=== PATIENT | female | born 1990 ===

== ENCOUNTER 2025-06-06 15:01 | Outpatient (AMB) | payer OTHER, SELFPAY ==
[2025-06-06 15:03] VITALS: BP 122/80; PULSE 112; O2SAT 100; BMI 35.6
--- NOTE | 2025-06-06 15:03 | A.OFFVIS_ITS ---
Vital Signs 3 06/06/25 15:03 Height 5 ft 7 in Weight 227 lb 4.745 oz BMI 35.6 BP 122/80 Blood Pressure Location Lt brachial Position Sitting Pulse 112 H Pulse Source Pulse Oximeter Pulse Oximetry (%) 100 Oxygen Delivery Method Room Air Intake Visit Reasons: Hashimotos Intake Note: New patient present today for Hashimotos. Electronics Processor Required: No Accompanied by: Self / Same As Patient Allergies levothyroxine Allergy (Mild, Verified 06/06/25 15:07) Abdominal Pain Medication List - Last Reconciled 06/06/25 by Alyssa Sunshine MD levothyroxine (Tirosint) 125 mcg PO DAILY HPI Comments Details: 35-year-old female coming in today for initial evaluation of hypothyroidism. 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 Did well on tirosint Most recent TSH 04/20/2025: 15.4 Currently on tirosint 125 mcg daily , taking it first thing in the morning , good adherence, good administration She was out of it for a month when she moved here back 3-4 months ago. but now has her refills Extreme fatigue and brain fog, trouble concentrating Patient currently denies heat or cold intolerance, diarrhea or constipation, hair loss, anxiety, weight changes, mood changes, changes in appearance of eyes or vision changes, tremors, increased diaphoresis or dry skin. ? intermittent palpitations, normal cardiology work up LMP: 2 weeks ago , monthly regular periods , not planning a , not currently sexually active Patient denies any difficulty swallowing, pain on swallowing or voice changes or difficulty breathing. Patient denies any history of childhood neck radiation. Denies having ever used lithium, amiodarone or biotin supplements. Patient denies any family history of thyroid cancer. 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 exam General: sitting comfortably in no acute distress HEENT: normocephalic/atraumatic, moist oral mucosa Neck: supple, prominent thyroid Cardiac: normal heart sounds Pulm: normal breath sounds B/L, no added breath sounds Abd: not distended, no tenderness Extremities: no edema, no signs of myxedema [facility] Medical History (Updated 06/06/25 @ 16:11 by Alyssa Sunshine MD) Thyromegaly Hypothyroidism Surgical History (Updated 06/06/25 @ 15:09 by MONICA Madrid) No pertinent past surgical history Family History (Updated 06/06/25 @ 15:11 by MONICA Madrid) Mother Fibromyalgia Breast cancer Heart disease Father Hypertension Type 2 diabetes mellitus Skin cancer High cholesterol Social History (Updated 06/06/25 @ 15:11 by MONICA Madrid) Alcohol intake: current Alcohol intake frequency: does not drink Patient Tobacco Use Status: Never used Tobacco Physical Exam Vital Signs: Last Vital Signs Pulse 112 H 06/06/25 15:03 BP 122/80 06/06/25 15:03 Pulse Ox 100 06/06/25 15:03 Oxygen Delivery Method Room Air 06/06/25 15:03 BMI result Body Mass Index 35.6 Assessment & Plan Assessment & Plan (1) Hypothyroidism: Code(s): E03.9 - Hypothyroidism, unspecified Category: Medical Qualifiers: 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 At the time that she was started on levothyroxine, she had adverse reaction with GI intolerance in the setting of being allergic to the dyes and levothyroxine, she has then been switched to Tirosint which she has done well on. Currently on Tirosint 125 mcg daily. When she recently moved to [place], she was out of her pills for some time so most recent blood work from March 2025 shows TSH was elevated at 15. Now she has been on it consistently for the past 2 months at least. We will repeat blood work today. Plan: -ordered TSH, free T4 to be done today, we will reach out with the results -continue Tirosint 125 mcg daily -follow up in 8 weeks (2) Thyromegaly: Code(s): E01.0 - Iodine-deficiency related diffuse (endemic) goiter Category: Medical Plan: Prominent thyroid on exam today. We will do thyroid ultrasound. Plan: -ordered ultrasound of the thyroid -follow up in 8 weeks to discuss results Plan I spent 45 minutes in reviewing the record, seeing the patient and documenting in the medical record. 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
== END 2025-06-06 16:08 | disposition home or self-care (01) ==
LOC: HO.ENCR 15:02
PROVIDERS: PCP Internal Medicine; Visit Provider Student in an Organized Health Care Education/Training Program
DX: E06.3 Autoimmune thyroiditis (principal); E01.0 Iodine-deficiency related diffuse (endemic) goiter
CPT/HCPCS: 99204

== ENCOUNTER → 2025-06-06 15:01 | Outpatient (BNVA) | payer OTHER, SELFPAY | PROVIDERS: PCP Internal Medicine; Visit Provider Student in an Organized Health Care Education/Training Program | DX: E06.3 Autoimmune thyroiditis (principal); E01.0 Iodine-deficiency related diffuse (endemic) goiter; Z79.899 Other long term (current) drug therapy | CPT/HCPCS: 99202 ==

== ENCOUNTER 2025-06-20 12:16 | Outpatient (REF) | payer OTHER, SELFPAY ==
--- OUTSIDE RECORDS SUMMARY | 2025-06-20 12:38 | XMS_ITS ---
Author Name [facility] Organization Unknown Care Team Organization Name Specialty Phone Email Start Date End Da te [facility] AMBER HAMMOND Primary Care 09/28/2022 07/09/2024
--- OUTSIDE RECORDS SUMMARY | 2025-06-20 12:38 | XMS_ITS | Encounter Summary ---
Author Organization [employer] Address [address] [place] [address] Care Team Providers Care Power Saw Operator Name Role Phone Samra Miranda MD Primary Care Provider [phone] Encounter Details Date Type Department Care Team (Latest Contact Info) Description 06/19/2025 Travel Social History Tobacco Use Types Packs/Day Years Used Date Smoking Tobacco: Never Comments Unknown Sex and Gender Information Value Date Recorded Sex Assigned at Female 05/31/2025 2:31 PM EDT Legal Sex Female 9:24 AM EDT Gender Identity Female 05/31/2025 2:31 PM EDT Sexual Orientation Straight 05/31/2025 2: 31 PM EDT documented as of this encounter Plan of Treatment Not on file documented as of this encounter Visit Diagnoses Not on filedocumented in this encounter Care Teams Power Saw Operator Relationship Specialty Start Date End Date Samra Miranda MD [address] [place] [address] Dr [place] [id number] PCP - General 05/21/25 documented as of this encounter
[2025-06-20 14:57] LABS: Free T4 (Free Thyroxine) 1.27 ng/dL (0.71-1.85); Thyroid Stimulating Hormone 1.87 uIU/mL (0.32-4.0)
== END 2025-06-20 12:17 | disposition home or self-care (01) ==
LOC: HO.WFDLDS 12:16
PROVIDERS: Visit Provider Student in an Organized Health Care Education/Training Program
DX: E03.9 Hypothyroidism, unspecified (principal)
CPT/HCPCS: 36415; 84439; 84443

== ENCOUNTER 2025-08-06 09:24 | Outpatient (AMB) | payer OTHER, SELFPAY ==
--- NOTE | 2025-08-06 09:24 | A.OFFVIS_ITS ---
Vital Signs 3 08/06/25 09:25 Height 5 ft 7 in Weight 234 lb 2.095 oz BMI 36.7 BP 116/76 Blood Pressure Location Lt brachial Position Sitting Pulse 87 Pulse Source Pulse Oximeter Pulse Oximetry (%) 100 Oxygen Delivery Method Room Air Intake Visit Reasons: Hashimotos Intake Note: Patient present today for [employer] office visit. Product Management Specialist Required: No Accompanied by: Self / Same As Patient Allergies levothyroxine Allergy (Mild, Verified 08/06/25 09:27) Abdominal Pain HPI Comments Details: 35-year-old female coming in today for follow up of hypothyroidism. 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 Did well on tirosint Most recent TSH 04/20/2025: 15.4 Currently on tirosint 125 mcg daily , taking it first thing in the morning , good adherence, good administration She was out of it for a month when she moved here back 3-4 months ago. but now has her refills Extreme fatigue and brain fog, trouble concentrating Patient currently denies heat or cold intolerance, diarrhea or constipation, hair loss, anxiety, weight changes, mood changes, changes in appearance of eyes or vision changes, tremors, increased diaphoresis or dry skin. ? intermittent palpitations, normal cardiology work up LMP: 2 weeks ago , monthly regular periods , not planning a , not currently sexually active Patient denies any difficulty swallowing, pain on swallowing or voice changes or difficulty breathing. Patient denies any history of childhood neck radiation. Denies having ever used lithium, amiodarone or biotin supplements. Patient denies any family history of thyroid cancer. 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 One year follow up for this would be needed. 06/20/2025: Normal TSH and free T4 Continues on Tirosint 125 mcg daily Physical exam General: sitting comfortably in no acute distress HEENT: normocephalic/atraumatic, moist oral mucosa Neck: supple, prominent thyroid Cardiac: normal heart sounds Pulm: normal breath sounds B/L, no added breath sounds Abd: not distended, no tenderness Extremities: no edema, no signs of myxedema Laboratory Tests 06/20/25 12:19 TSH 1.87 Free T4 1.27 [facility] Medical History (Updated 08/06/25 @ 09:52 by Alyssa Sunshine MD) Insomnia Thyroid nodule Thyromegaly Hypothyroidism Surgical History No pertinent past surgical history Family History Mother Fibromyalgia Breast cancer Heart disease Father Hypertension Type 2 diabetes mellitus Skin cancer High cholesterol Social History Alcohol intake: current Alcohol intake frequency: does not drink Patient Tobacco Use Status: Never used Tobacco Physical Exam Vital Signs: Last Vital Signs Pulse 87 08/06/25 09:25 BP 116/76 08/06/25 09:25 Pulse Ox 100 08/06/25 09:25 Oxygen Delivery Method Room Air 08/06/25 09:25 BMI result Body Mass Index 36.7 Assessment & Plan Assessment & Plan (1) Hypothyroidism: Code(s): E03.9 - Hypothyroidism, unspecified Category: Medical Qualifiers: 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 At the time that she was started on levothyroxine, she had adverse reaction with GI intolerance in the setting of being allergic to the dyes and levothyroxine, she has then been switched to Tirosint which she has done well on. Currently on Tirosint 125 mcg daily. When she recently moved to [place], she was out of her pills for some time so most recent blood work from March 2025 shows TSH was elevated at 15. Now she has been on it consistently with normal TSH and free T4 from May 2025. Plan: -ordered TSH, free T4 to be done prior to follow up in 1 year -continue Tirosint 125 mcg daily -follow up in 1 year (2) Thyroid nodule: Code(s): E04.1 - Nontoxic single thyroid nodule Category: Medical Plan: 35-year-old female with no family history of thyroid cancer with no personal history of head or neck radiation with hypothyroidism, who was also found to have a left mid lobe 1 cm solid hypoechoic TR 4 nodule. I explained that it is common to have thyroid nodules. About 95% of the time these nodules are benign. However if the nodule is > 1 cm in size or suspicious on ultrasound then a fine need aspiration biopsy is recommended. At this time we will plan to repeat ultrasound in 1 year prior to follow up. Plan: -ordered ultrasound of the thyroid to be done in June 2026 prior to follow up in July 2026 (3) Insomnia: Code(s): G47.00 - Insomnia, unspecified Category: Medical Qualifiers: Insomnia type: unspecified Qualified Code(s): G47.00 - Insomnia, unspecified Plan: Patient is complaining of sleep issues and persistent fatigue. Her thyroid function is normal so she is requesting a sleep medicine referral. I told her that usually sleep specialist see patients with sleep apnea and she has not had a sleep study done. However patient expressed that she already discuss this with her primary care physician and was told to discuss it with the endocrinology? I explained to her that usually 1st the PCP starts with the discussion on sleep hygiene, orders a sleep study but at this time I am happy to put in a referral for her however they might require her to do a sleep study 1st in which case she would have to contact her PCP. Patient verbalized understanding and was appreciative of the referral. Plan I spent 30 minutes in reviewing the record, seeing the patient and documenting in the medical record. Orders: Orders 2 US thyroid 07/04/26 E04.1 - Nontoxic single thyroid nodule Free T4 (Free Thyroxine) 06/30/26 E06.3 - Autoimmune thyroiditis Thyroid Stimulating Hormone 06/30/26 E06.3 - Autoimmune thyroiditis Referrals 2 Sleep Medicine Referral G47.00 - Insomnia, unspecified Medications: Refilled 2 Tirosint (levothyroxine) BRAND NAME ONLY IRENE 0 No substitution allowed 125 mcg PO DAILY 90 caps 5RF NS Patient Instructions: Do ultrasound of the thyroid in June 2026, someone we will call you to schedule this, please make sure this is done a few weeks prior to your next follow up with me -do thyroid blood work a few days prior to next follow up in July 2026 Continue Tirosint 125 mcg daily Follow up in July 2026 Coding Level of Care Code Est Pt Level 4 (37474) Diagnoses 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
[2025-08-06 09:25] VITALS: BP 116/76; PULSE 87; O2SAT 100; BMI 36.7
--- OUTSIDE RECORDS SUMMARY | 2025-08-06 11:55 | XMS_ITS | Clinical Summary ---
Author Organization [employer] Address [address] [facility] [address] [place] [address] Care Team Providers Care Self Contained Behavior Unit Teacher Name Role Phone Samra Miranda MD Primary Care Provider [phone] Allergies No known active allergies Medications Tirosint 125 MCG capsule Take 125 mcg by mouth Once per day. 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 History of ovarian cyst 06/19/2025 Severe obesity (BMI 35.0-39.9) with comorbidity 06/19/2025 Encounters Date Type Department Care Team Description 06/19/2025 12:00 PM EDT Office Visit [facility] OPTOMETRY [address] [place] [address] Sarah Gomez, OD Corneal neovascularization of both eyes (Primary Dx); Myopia of both eyes 06/19/2025 Travel 06/13/2025 Travel from Last 3 Months Social History Tobacco Use Types Packs/Day Years Used Date Smoking Tobacco: Never Tobacco Cessation:Counseling Given: Not Answered Comments Unknown Sex and Gender Information Value Date Recorded Sex Assigned at Female 05/31/2025 2:31 PM EDT Legal Sex Female 9:24 AM EDT Gender Identity Female 05/31/2025 2:31 PM EDT Sexual Orientation Straight 05/31/2025 2: 31 PM EDT Last Filed Vital Signs Vital Sign Reading Time Taken Comments Blood Pressure 104/82 06/19/2025 11:55 AM EDT Pulse - - Temperature - - Respiratory Rate - - Oxygen Saturation - - Inhaled Oxygen Concentration - - Weight - - Height - - Body Mass Index - - Plan of Treatment Health Maintenance Due Date Last Done Comments Depression Screening 1991 HIV Screening 1991 Lipid Panel 1991 SDOH Screening 1991 Disability Screening 1991 Alcohol/Substance Use Screening 2003 Family Planning (PISQ) 2006 HPV Vaccines (1 - 3-dose series) 2006 Hepatitis C Screening 2009 DTaP/Tdap/Td Vaccines (1 - Tdap) 2010 Hepatitis B Vaccines (1 of 3 - 19+ 3-dose series) 2010 Pap Smear 2012 Cervical Cancer Screening 2021 HPV/Cotest 2021 COVID-19 Vaccine (1 - 2023-2 5 season) 2025 Influenza Vaccine (#1) 2025 Tobacco Screening 06/19/2026 06/19/2025 Zoster Vaccines (1 of 2) 2041 RSV Patients and Pa tients Aged 60 years or older (1 - 1-dose 75+ series) 2066 HIB Vaccines Aged Out No longer eligi ble based on patient's age to complete this topic Hepatitis A Vaccines Aged Out No long er eligible based on patient's age to complete this topic IPV Vaccines Aged Out No longer eligi ble based on patient's age to complete this topic Meningococcal B Vaccine Aged Out No l onger eligible based on patient's age to complete this topic Meningococcal Vaccine Aged Out No randi maria teresa eligible based on patient's age to complete this topic Pneumococcal Vaccine: Pediat rics (0 to 5 Years) and At-Risk Patients (6 to 49) Years Aged Out No longer eligi ble based on patient's age to complete this topic RSV under 20 months Aged Out No longe r eligible based on patient's age to complete this topic Rotavirus Vaccines Aged Out No longer eligible based on patient's age to complete this topic Insurance [facility] Care Teams Self Contained Behavior Unit Teacher Relationship Specialty Start Date End Date Samra Miranda MD [address] [place] [address] [place] [address] PCP - General 05/21/25
== END 2025-08-06 09:53 | disposition home or self-care (01) ==
LOC: HO.ENCR 09:24
PROVIDERS: PCP Internal Medicine; Visit Provider Student in an Organized Health Care Education/Training Program
DX: E06.3 Autoimmune thyroiditis (principal); E04.1 Nontoxic single thyroid nodule; G47.00 Insomnia, unspecified
CPT/HCPCS: 99214

== ENCOUNTER → 2025-08-06 09:24 | Outpatient (BNVA) | payer OTHER, SELFPAY | PROVIDERS: PCP Internal Medicine; Visit Provider Student in an Organized Health Care Education/Training Program | DX: E04.1 Nontoxic single thyroid nodule (principal); E06.3 Autoimmune thyroiditis; G47.00 Insomnia, unspecified | CPT/HCPCS: 99212 ==

== ENCOUNTER 2025-08-13 08:22 | Outpatient (REF) | payer OTHER, SELFPAY ==
--- OUTSIDE RECORDS SUMMARY | 2025-08-14 09:11 | XMS_ITS | Clinical Summary ---
Author Organization [employer] Address [address] [facility] [address] [place] [address] Care Team Providers Care Heading Matcher And Assembler Name Role Phone Samra Miranda MD Primary Care Provider [phone] Allergies No known active allergies Medications Tirosint 125 MCG capsule Take 125 mcg by mouth Once per day. 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 History of ovarian cyst 06/19/2025 Severe obesity (BMI 35.0-39.9) with comorbidity 06/19/2025 Encounters Date Type Department Care Team Description 06/19/2025 12:00 PM EDT Office Visit [facility] [address] [place] [address] Sarah Gomez, OD Corneal neovascularization of both [...] patient's age to complete this topic Insurance [facility] ESSENTIAL MCO PLAN [facility] [employer] Care Teams Heading Matcher And Assembler Relationship Specialty Start Date End Date Samra Miranda MD [address] [place] [address] [place] [phone] PCP - General 05/21/25
== END 2025-08-13 08:23 | disposition home or self-care (01) ==
LOC: HO.HOSX 08:22
PROVIDERS: Visit Provider Physician Assistant
DX: M53.3 Sacrococcygeal disorders, not elsewhere classified (principal); M54.16 Radiculopathy, lumbar region
CPT/HCPCS: 99202

== ENCOUNTER 2025-08-13 11:17 | Outpatient (AMB) | payer OTHER, SELFPAY ==
--- NOTE | 2025-08-13 11:48 | MHC.OFFVIS ---
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 Pierce is a 35-year-old female who presents to the office today for right lower back pain with radiating symptoms to the right lower extremity. She reports that she has had SI dysfunction and has been to multiple rounds of physical therapy. She reports that she had an MRI that was obtained at [facility] which also had nerve compression findings. She has not had any additional treatment to her lower back or SI joint in regards to steroid injections or other procedures. She denies pain in the right groin. The majority of her pain is located along the lower aspect of her back and right buttock. [facility] Medical History (Updated 08/13/25 @ 14:09 by Silvia Turner PA-C) Insomnia Thyroid nodule Thyromegaly Hypothyroidism Surgical History No pertinent past surgical history Family History Mother Fibromyalgia Breast cancer Heart disease Father Hypertension Type 2 diabetes mellitus Skin cancer High cholesterol Social History Alcohol intake: current Alcohol intake frequency: does not drink Patient Tobacco Use Status: Never used Tobacco Review of Systems Const All systems reviewed & are unremarkable except as noted in HPI and below Physical Exam Const General: cooperative, healthy appearing and no acute distress Resp Effort & Inspection: normal respiratory effort and able to speak in complete sentences Extrem Other: Right hip: Full hip ROM in all planes. No tenderness to palpation over the greater trochanteric bursa. 5/5 strength with resisted hip flexion, knee extension, abduction, and abduction. Able to perform straight leg raise. NVI. Psych Appearance: grossly normal Mental Status: mental status grossly normal Attitude: cooperative Assessment & Plan Assessment & Plan (1) SI (sacroiliac) joint dysfunction: Code(s): M53.3 - Sacrococcygeal disorders, not elsewhere classified Category: Medical Plan Ms. Pierce is a 35-year-old female who presents to the office today for right lower back pain with radiating symptoms to the right lower extremity. She reports that she has had SI dysfunction and has been to multiple rounds of physical therapy. She reports that she had an MRI that was obtained at [facility] which also had nerve compression findings. She has not had any additional treatment to her lower back or SI joint in regards to steroid injections or other procedures. She denies pain in the right groin. The majority of her pain is located along the lower aspect of her back and right buttock. While in the office today, the patient reports that she has had x-rays as well as an MRI that was done previous to today's evaluation. Unfortunately, there seems to be a miscommunication when scheduling the appointment. The patient does not have any complaints regarding the right hip. I instructed the patient that she should obtain her MRI imaging of her lower back from [facility] on a disc as well as the MRI report. We have made a follow up appointment with Dr. Hannah for further evaluation and treatment. Additionally, we discussed the role of EMG as the patient is symptoms are radiating to the right lower extremity and there was a question of nerve impingement. She reported that a previous provider who was treating her had also mentioned this study. Therefore, I will place an order for this study for Dr. Hannah to have as much information as possible to evaluate this patient and develop the appropriate treatment plan. Patient is in agreement with this plan. She will follow up with Dr. Hannah after EMG has been obtained and the patient will bring her MRI disc with the report to this appointment. Orders: Orders NE nerve conduction velocity Today M53.3 - Sacrococcygeal disorders, not elsewhere classified, M54.16 - Radiculopathy, lumbar region NE electromyogram (EMG) Today M53.3 - Sacrococcygeal disorders, not elsewhere classified, M54.16 - Radiculopathy, lumbar region Coding Level of Care Code New Pt Level 3 (59937) Diagnoses SI (sacroiliac) joint dysfunction M53.3
--- OUTSIDE RECORDS SUMMARY | 2025-08-13 14:09 | XMS_ITS | Clinical Summary ---
Author Organization [employer] Address [address] [facility] [address] [place] [address] Care Team Providers Care Automation Analyst Name Role Phone Samra Miranda MD Primary Care Provider [phone] Allergies No known active allergies Medications Tirosint 125 MCG capsule Take 125 mcg by mouth Once per day. 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 History of ovarian cyst 06/19/2025 Severe obesity (BMI 35.0-39.9) with comorbidity 06/19/2025 Encounters Date Type Department Care Team Description 06/19/2025 12:00 PM EDT Office Visit [facility] [address] [place] [address] Sarah Gomez, OD Corneal neovascularization of both [...] patient's age to complete this topic [facility] [employer] PLAN [facility] [employer] Care Teams Automation Analyst Relationship Specialty Start Date End Date Samra Miranda MD [address] [place] [address] [place] [phone] PCP - General 05/21/25
== END 2025-08-13 12:14 | disposition home or self-care (01) ==
LOC: HO.HOS 11:18
PROVIDERS: PCP Internal Medicine; Visit Provider Physician Assistant
DX: M53.3 Sacrococcygeal disorders, not elsewhere classified (principal)
CPT/HCPCS: 99203

== ENCOUNTER 2025-08-19 13:22 | Outpatient (AMB) | payer OTHER, SELFPAY ==
--- OUTSIDE RECORDS SUMMARY | 2025-06-19 12:00 | XMS_ITS | Encounter Summary ---
Author Organization [employer] Address [address] [place] [address] Care Team Providers Care Grapple Skidder Operator Name Role Phone Samra Miranda MD Primary Care Provider [phone] Reason for Visit * Reason Comments Eye Exam Encounter Details Date Type Department Care Team (Latest Contact Info) Description 06/19/2025 12:00 PM EDT Office Visit [facility] OPTOMETRY [address] [place] [address] Sarah Gomez, [place] [address] [place] [address] Corneal neovascularization of both eyes (Primary Dx); Chronic tension-type headache, not intractable; Myopia of both eyes Social History Tobacco Use Types Packs/Day Years Used Date Smoking Tobacco: Never Tobacco Cessation:Counseling Given: Not Answered Comments Unknown Sex and Gender Information Value Date Recorded Sex Assigned at Female 05/31/2025 2:31 PM EDT Legal Sex Female 9:24 AM EDT Gender Identity Female 05/31/2025 2:31 PM EDT Sexual Orientation Straight 05/31/2025 2: 31 PM EDT documented as of this encounter Last Filed Vital Signs Vital Sign Reading Time Taken Comments Blood Pressure 104/82 06/19/2025 11:55 AM EDT Pulse - - Temperature - - Respiratory Rate - - Oxygen Saturation - - Inhaled Oxygen Concentration - - Weight - - Height - - Body Mass Index - - documented in this encounter Progress Notes * MONICA Beth - 06/19/2025 12:00 PM EDT Assessment/Plan * Sarah Gomez, OD - 06/19/2025 12:00 PM EDT Assessment/Plan Diagnoses and all orders for this visit: Corneal neovascularization of both eyes Previous history of per pt, she states discontinued CL wear several years ago. Pt reassured healthycorneal appearance; OK to resume part-time CL wear Chronic tension-type headache, not intractable Recommend updating specs and work with PCP if symptoms continue Myopia of both eyes Spec Rx given DVO. Good initial fit, comfort with Acuvue 1-day moist. Dispensed diagnostic CLs and Rx finalized - RTC if any problems documented in this encounter Plan of Treatment Not on file documented as of this encounter Visit Diagnoses Diagnosis Corneal neovascularization of both eyes- Primary Chronic tension-type headache, not intractable Chronic tension type headache Myopia of both eyes documented in this encounter Care Teams Grapple Skidder Operator Relationship Specialty Start Date End Date Samra Miranda MD [address] [place] [address] [place] [id number] PCP - General 05/21/25 documented as of this encounter
[2025-08-19 13:31] VITALS: BP 124/72; PULSE 80; O2SAT 99; BMI 36.7
--- NOTE | 2025-08-19 13:31 | MHC.OFFVIS ---
Vital Signs 08/19/25 13:31 Height 5 ft 7 in Weight 234 lb 6 oz BMI 36.7 BP 124/72 Blood Pressure Location Rt brachial Position Sitting Pulse 80 Pulse Source Pulse Oximeter Pulse Oximetry (%) 99 Oxygen Delivery Method Room Air Intake Visit Reasons: INP-insomnia Intake Note: Patient presents [employer]. Patient is complaining of sleep issues and persistent fatigue. Her thyroid function is normal so she is requesting a sleep medicine referral. I told her that usually sleep specialist see patients with sleep apnea and she has not had a sleep study done. Patient states snoring but not sure about apnea/gasping. Goes to bed around 10pm wakes up at 8am. Wakes up at least 1-2times. Wakes up sometimes with headaches that resolve through out the day. Accompanied by: Self / Same As Patient Allergies levothyroxine Allergy (Mild, Verified 08/19/25 13:35) Abdominal Pain HPI Comments Details: 35 year old female is here for a sleep apnea evaluation, she is referred to us by her pcp. 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 She thought her symptoms were due to intermediate covid and Hashimotos though her labs were normal. She snores at night, denies gasping for air and apneas. She has morning headaches 3-4 / per week and it resolve at lunch time or after meals. She has pressure and ringing in her ears bilaterally. Her memory is poor she loses focus, can not concentrate, will forget tasks, and needs to write everything down. She is uncertain about her diagnosis and is working through neuro- divergent therapies to include talk therapy. She has tried melatonin 10mg gummies, in the past, she goes to bed at 10:30pm and falls asleep by midnight. She gets up at 8am and gets out of bed by 9am to walk her dog. RLS Symptoms she denies, though has r. sided sciatica, is working with a PT 2x a week for the last 3 weeks for impingement of the piriformis. She denies paresthesias of the feet and noticed a new intermittent tremor of the l. hand, she denies weakness or difficulty with fine motor activities. She denies smoking, MJ use and alcohol intake is social. [facility] Medical History Insomnia Thyroid nodule Thyromegaly Hypothyroidism Surgical History No pertinent past surgical history Family History Mother Fibromyalgia Breast cancer Heart disease Father Hypertension Type 2 diabetes mellitus Skin cancer High cholesterol Social History Alcohol intake: current Alcohol intake frequency: does not drink Patient Tobacco Use Status: Never used Tobacco Physical Exam Vital Signs: Last Vital Signs Pulse 80 08/19/25 13:31 BP 124/72 08/19/25 13:31 Pulse Ox 99 08/19/25 13:31 Oxygen Delivery Method Room Air 08/19/25 13:31 BMI result Body Mass Index 36.7 Const General: cooperative, comfortable and no acute distress Nutritional Appearance: average body habitus Orientation/consciousness: patient oriented x3 HEENT Face and sinus: Yes face symmetric Teeth and gingiva: other ([place] score is 3) Eyes Pupils: Equal, round and reactive pupils present Neck Neck: Yes full ROM Resp Effort & Inspection: normal respiratory effort and able to speak in complete sentences Neuro General: patient oriented x3 and moves all extremities Cranial nerves: Yes Equal, round and reactive pupils present, Yes Normal accommodation reflex present, Yes Midline tongue present, Yes Ability to bilaterally rotate head present and Yes Ability to bilaterally elevate shoulders present Cognition (Neuro): normal cognition Gait exam (Neuro): Normal gait present Motor exam (neuro): 5/5 motor strength present throughout and Normal motor muscle tone present throughout Deep tendon reflexes (DTR's): Right triceps reflex intensity grade: 2+, Left triceps reflex intensity grade: 2+, Rt Biceps (C5, C6): 2+, Left biceps reflex intensity grade: 2+, Right brachioradialis reflex intensity grade: 2+, Left brachioradialis reflex intensity grade: 2+, Right patellar reflex intensity grade: 2+ and Left patellar reflex intensity grade: 2+ Psych Appearance: grossly normal Mental Status: mental status grossly normal Affect: normal affect Thought process: Normal thought process present Thought content: Normal thought content present Assessment & Plan Assessment & Plan (1) Insomnia: Code(s): G47.00 - Insomnia, unspecified Category: Medical Qualifiers: Insomnia type: unspecified Qualified Code(s): G47.00 - Insomnia, unspecified (2) Excessive daytime sleepiness: Code(s): G47.19 - Other hypersomnia Category: Medical (3) SI (sacroiliac) joint dysfunction: Code(s): M53.3 - Sacrococcygeal disorders, not elsewhere classified Category: Medical Plan Excessive daytime fatigue HST r/o KAYLIN Labs to r/o deficiencies Tremor of the l. upper extremity will monitor RLS symptoms r sided will monitor, she is doing PT. Orders: Orders Complete Blood Count no Diff Today G47.00 - Insomnia, unspecified, G47.19 - Other hypersomnia Ferritin Today G47.00 - Insomnia, unspecified, G47.19 - Other hypersomnia Homocysteine Today G47.00 - Insomnia, unspecified, G47.19 - Other hypersomnia, G47.9 - Sleep disorder, unspecified, R53.83 - Other fatigue Vitamin B6 Today G47.00 - Insomnia, unspecified, G47.19 - Other hypersomnia Vitamin B12 and Folate Today G47.00 - Insomnia, unspecified, G47.19 - Other hypersomnia RT home sleep study Today G47.00 - Insomnia, unspecified, G47.19 - Other hypersomnia Comprehensive Met. Panel Today G47.00 - Insomnia, unspecified, G47.19 - Other hypersomnia Methylmalonic Acid Today G47.00 - Insomnia, unspecified, G47.19 - Other hypersomnia, G47.9 - Sleep disorder, unspecified, R53.83 - Other fatigue Vitamin D 25-OH Total Today G47.00 - Insomnia, unspecified, G47.19 - Other hypersomnia Vitamin B1 Today G47.00 - Insomnia, unspecified, G47.19 - Other hypersomnia Patient Instructions: Sleep Hygiene provided: set a scheduled bedtime and wake time to help regulate the circadian rhythm and balance the release of pituitary hormones. Sleep in a dark room, temperatures below 68 degrees, and no devices n bed. Limit caffeinated products 6 hours prior to bed, and limit fluids 2-4 hours prior to bed. Gentle night yoga, diffusing essential oils, and playing soft music can be relaxing. Coding Level of Care Code New Pt Level 4 (07566) Diagnoses Insomnia, unspecified type G47.00 Insomnia type: unspecified Excessive daytime sleepiness G47.19 SI (sacroiliac) joint dysfunction M53.3 Sleep Questionnaire Difficulty falling asleep: Yes Difficulty staying asleep?: No Number of arousals: 2-3x night Snoring: Yes Witnessed apneas: No Gasping arousals: No Nocturia: No GERD: No Vivid dreams: No Acting out dreams: Yes (kicks her legs ) Abnormal behavior in sleep: No Abnormal movements in sleep: Yes Morning headaches: Yes Excessive daytime sleepiness: Yes Daytime naps: No Restless legs: Yes (r side hip pain radiates can cause numbness tingli) Hallucinations: No Sleep paralysis: Yes Drop attacks: No Sleep Study: No CPAP: No
--- OUTSIDE RECORDS SUMMARY | 2025-08-19 14:53 | XMS_ITS | Data Portability ---
Author Organization [facility] [employer] Address [address] [place] [phone] Assessment Encounter Date Assessment Date Assessment LastModified by Organization Details LastModified Time 07/05/2023 07/05/2023 15 minutes spent on TH call. 20 minutes spent on date of service on chart review, direct time spent with patient, and documentation of clinical encounter. Pt will check BP out of office, states she has one to use at local pharmacy. Notify us if elevated above 130/90. Not available 07/05/2023 12:27:35 Plan of Treatment Reminders Order Date Submit Date Provider Last Modified By Organization Details Last Modified Time Details Appointments None recorded. Lab HbA1c (hemoglobi n A1c), blood 2022 023 [facility] (Centralized Electronic Ordering - All Locations), Patient Can Go To The Location Of Their Choice, 3 19:24:15 lipid panel, serum 2022 023 [facility] (Centralized Electronic Ordering - All Locations), Patient Can Go To The Location Of Their Choice, 3 15:28:33 TSH, serum or plasma 2022 023 [facility] (Centralized Electronic Ordering - All Locations), Patient Can Go To The Location Of Their Choice, 3 15:39:22 vitamin D, 25-hydroxy , total, serum 2022 023 [facility] (Centralized Electronic Ordering - All Locations), Patient Can Go To The Location Of Their Choice, 3 15:39:23 CBC w/ auto diff 2022 023 [facility] (Centralized Electronic Ordering - All Locations), Patient Can Go To The Location Of Their Choice, 15:08:20 CMP, serum or plasma 2022 023 [facility] (Centralized Electronic Ordering - All Locations), Patient Can Go To The Location Of Their Choice, 15:28:32 Referral None recorded. Procedures None recorded. Surgeries None recorded. Imaging None recorded. Medication Orders Tirosint 112 mcg capsule 2022 023 [id number], [address] [place] [address], [place], [address], 16:08:56 Patient TargetsNo targets recorded. Patient InstructionsNo instructions recorded. Reason for Referral None Reported. Results Created Date Observation Date Name Description Value Unit Range Abnormal Flag Note LastModifiedBy Organization Detail LastModifiedTime 07/08/2007/08/2023 COMPL ETE BLOOD COUNT WBC 7.3 K/mm3 (4.0-1 1.0) Not Available [facility] (Centralized Electronic Ordering - All Locations) Patient Can Go To The Location Of Their Choice, 07/08/2023 15:08:07/08/2007/08/2023 COMPL ETE BLOOD COUNT RBC 4.51 M/mm3 (4.20- 5.40) Not Available [facility] (Centralized Electronic Ordering - All Locations) Patient Can Go To The Location Of Their Choice, 07/08/2023 15:08:19 07/08/2007/08/2023 COMPL ETE BLOOD COUNT HGB 13.0 gm/dL (11.7- 15.5) Not Available [facility] (Centralized Electronic Ordering - All Locations) Patient Can Go To The Location Of Their Choice, 07/08/2023 15:08:07/08/2007/08/2023 COMPL ETE BLOOD COUNT HCT 40.2 % (35.7- 45.8) Not Available [facility] (Centralized Electronic Ordering - All Locations) Patient Can Go To The Location Of Their Choice, 07/08/2023 15:08:19 07/08/2007/08/2023 COMPL ETE BLOOD COUNT MCV 89.1 fL (80.0- 100.0) Not Available [facility] (Centralized Electronic Ordering - All Locations) Patient Can Go To The Location Of Their Choice, 07/08/2023 15:08:19 07/08/2007/08/2023 COMPL ETE BLOOD COUNT MCH 28.8 pg (27.0- 34.0) Not Available [facility] (Centralized Electronic Ordering - All Locations) Patient Can Go To The Location Of Their Choice, 07/08/2023 15:08:07/08/2007/08/2023 COMPL ETE BLOOD COUNT MCHC 32.3 g/dL (33.0- 37.0) low Not Available [facility] (Centralized Electronic Ordering - All Locations) Patient Can Go To The Location Of Their Choice, 07/08/2023 15:08:07/08/2007/08/2023 COMPL ETE BLOOD COUNT plt 334 K/mm3 (150-4 60) Not Available [facility] (Centralized Electronic Ordering - All Locations) Patient Can Go To The Location Of Their Choice, 07/08/2023 15:08:19 07/08/2007/08/2023 COMPL ETE BLOOD COUNT RDW-SD 43.4 fL (<47.0 ) Not Available [facility] (Centralized Electronic Ordering - All Locations) Patient Can Go To The Location Of Their Choice, 07/08/2023 15:08:07/08/2007/08/2023 COMPL ETE BLOOD COUNT MPV 10.4 fL (9.4-1 2.4) Not Available [facility] (Centralized Electronic Ordering - All Locations) Patient Can Go To The Location Of Their Choice, 07/08/2023 15:08:07/08/2007/08/2023 COMPL ETE BLOOD COUNT automated NRBC 0.0 #/100 _WBC' s Not Available [facility] (Centralized Electronic Ordering - All Locations) Patient Can Go To The Location Of Their Choice, 07/08/2023 15:08:19 07/08/2007/08/2023 COMPL ETE BLOOD COUNT abs. NRBC 0.0 K/mm3 Not Available [facility] (Centralized Electronic Ordering - All Locations) Patient Can Go To The Location Of Their Choice, 07/08/2023 15:08:19 07/08/2007/08/2023 COMPR EHENS YARELIS METAB OLIC PANL glucose 75 mg/dL (70-99 ) Not Available [facility] (Centralized Electronic Ordering - All Locations) Patient Can Go To The Location Of Their Choice, 07/08/2023 15:28:32 07/08/2007/08/2023 COMPR EHENS YARELIS METAB OLIC PANL BUN 10 mg/dL (6-20) Not Available [facility] (Centralized Electronic Ordering - All Locations) Patient Can Go To The Location Of Their Choice, 07/08/2023 15:28:32 07/08/2007/08/2023 COMPR EHENS YARELIS METAB OLIC PANL creatinine 0.7 mg/dL (0.5-1 .0) Not Available [facility] (Centralized Electronic Ordering - All Locations) Patient Can Go To The Location Of Their Choice, 07/08/2023 15:28:32 07/08/2007/08/2023 COMPR EHENS YARELIS METAB OLIC PANL sodium 138 mmol/ L (133-1 45) Not Available [facility] (Centralized Electronic Ordering - All Locations) Patient Can Go To The Location Of Their Choice, 07/08/2023 15:28:32 07/08/2007/08/2023 COMPR EHENS YARELIS METAB OLIC PANL potassium 4.3 mmol/ L (3.6-5 .2) Not Available [facility] (Centralized Electronic Ordering - All Locations) Patient Can Go To The Location Of Their Choice, 07/08/2023 15:28:32 07/08/2007/08/2023 COMPR EHENS YARELIS METAB OLIC PANL chloride 105 mmol/ L (98-10 7) Not Available [facility] (Centralized Electronic Ordering - All Locations) Patient Can Go To The Location Of Their Choice, 07/08/2023 15:28:32 07/08/2007/08/2023 COMPR EHENS YARELIS METAB OLIC PANL bicarbonate 23 mmol/ L (22-29 ) Not Available [facility] (Centralized Electronic Ordering - All Locations) Patient Can Go To The Location Of Their Choice, 07/08/2023 15:28:32 07/08/2007/08/2023 COMPR EHENS YARELIS METAB OLIC PANL anion gap 10 (4-17) Not Available [facility] (Centralized Electronic Ordering - All Locations) Patient Can Go To The Location Of Their Choice, 07/08/2023 15:28:32 07/08/2007/08/2023 COMPR EHENS YARELIS METAB OLIC PANL albumin 4.5 gm/dL (3.4-4 .8) Not Available [facility] (Centralized Electronic Ordering - All Locations) Patient Can Go To The Location Of Their Choice, 07/08/2023 15:28:32 07/08/2007/08/2023 COMPR EHENS YARELIS METAB OLIC PANL calcium 9.5 mg/dL (8.6-1 0.5) Not Available [facility] (Centralized Electronic Ordering - All Locations) Patient Can Go To The Location Of Their Choice, 07/08/2023 15:28:32 07/08/2007/08/2023 COMPR EHENS YARELIS METAB OLIC PANL bilirubin,to samuel 0.8 mg/dL (0-1.2 ) Not Available [facility] (Centralized Electronic Ordering - All Locations) Patient Can Go To The Location Of Their Choice, 07/08/2023 15:28:32 07/08/2007/08/2023 COMPR EHENS YARELIS METAB OLIC PANL total protein 8.0 gm/dL (6.2-8 .2) Not Available [facility] (Centralized Electronic Ordering - All Locations) Patient Can Go To The Location Of Their Choice, 07/08/2023 15:28:32 07/08/2007/08/2023 COMPR EHENS YARELIS METAB OLIC PANL Ag ratio 1.3 Not Available [facility] (Centralized Electronic Ordering - All Locations) Patient Can Go To The Location Of Their Choice, 07/08/2023 15:28:32 07/08/2007/08/2023 COMPR EHENS YARELIS METAB OLIC PANL AST 15 U/L (0-32) Not Available [facility] (Centralized Electronic Ordering - All Locations) Patient Can Go To The Location Of Their Choice, 07/08/2023 15:28:32 07/08/2007/08/2023 COMPR EHENS YARELIS METAB OLIC PANL alk phos 57 U/L (35-10 4) Not Available [facility] (Centralized Electronic Ordering - All Locations) Patient Can Go To The Location Of Their Choice, 07/08/2023 15:28:32 07/08/20 23 07/08/2023 COMPR EHENS YARELIS METAB OLIC PANL ALT 26 U/L (0-33) Not Available [facility] (Centralized Electronic Ordering - All Locations) Patient Can Go To The Location Of Their Choice, 07/08/2023 15:28:32 07/08/2007/08/2023 COMPR EHENS YARELIS METAB OLIC PANL estimated GFR creatinine 116 mL/mi n/1.7 3_M2 Creat inine based estim ated glome rular filtr ation (eGFR ) in adult s is calcu lated using the Natio nal Kidne y Found ation recom tushar d 2020 CKD-E PI equat ion. Estim ates GFR from serum creat inine , age and sex. Not Available [facility] (Centralized Electronic Ordering - All Locations) Patient Can Go To The Location Of Their Choice, 07/08/2023 15:28:32 07/08/2007/08/2023 LIPID PANEL cholesterol, total 128 mg/dL (<200) Not Available [facility] ([facility] - All Locations) Patient Can Go To The Location Of Their Choice, 07/08/2023 15:28:33 07/08/2007/08/2023 LIPID PANEL triglyceride 103 mg/dL (<150) Not Available [facility] ([facility] - [facility] Locations) Patient Can Go To The Location Of Their Choice, 07/08/2023 15:28:33 07/08/2007/08/2023 LIPID PANEL HDL chol 39 mg/dL (>39) low Not Available [facility] (Centralized Electronic Ordering - All Locations) Patient Can Go To The Location Of Their Choice, 07/08/2023 15:28:33 07/08/2007/08/2023 LIPID PANEL LDL cholesterol, calculated 68 mg/dL (0-130 ) Not Available [facility] (Centralized Electronic Ordering - All Locations) Patient Can Go To The Location Of Their Choice, 07/08/2023 15:28:33 07/08/2007/08/2023 LIPID PANEL non HDL cholesterol (calc) 89 mg/dL (<160) Not Available [facility] ([facility] Order[facility] - All Locations) Patient Can Go To The Location Of Their Choice, 07/08/2023 15:28:33 07/08/2007/08/2023 TSH WITH REFLE X TO FT4 TSH 8.51 uIU/m L (0.4-4 .2) high Not Available [facility] (Centralized Electronic Ordering - All Locations) Patient Can Go To The Location Of Their Choice, 07/08/2023 15:39:22 07/08/2007/08/2023 25OH VITAM IN D 25OH vitamin D 20.8 NG/mL (20-50 ) Not Available [facility] (Centralized Electronic Ordering - All Locations) Patient Can Go To The Location Of Their Choice, 07/08/2023 15:39:23 07/08/2007/08/2023 FREE T4 free T4 1.42 NG/dL (0.70- 1.80) Not Available [facility] (Centralized Electronic Ordering - All Locations) Patient Can Go To The Location Of Their Choice, 07/08/2023 16:20:24 07/08/2007/08/2023 HEMOG LOBIN A1C hemoglobin A1C 5.2 % (4.0-5 .6) MONIT ORING : In known diabe tic patie nts, hemog lobin A1c targe ts shoul d be discu ssed with healt h care provi darline. DIAGN OSTIC USE: The Ameri can Diabe aaron Assoc iatio n (ADA) and the World Healt h Organ izati on (WHO) recom mend the use of HbA1c to diagn ose diabe aaron using a thres hold of 6.5%. Patie nts who have an HbA1c betwe en 5.7% and 6.4% are consi dered at incre ased risk for devel oping diabe aaron in the futur e. CAUTI ON: False ly low HbA1c resul ts may be obser bob in patie nts with hemol ytic anemi a, homoz ygous forms of abnor mal hemog lobin (e.g. SS, CC, SC), pregn karen, recen t blood loss or hemog lobin F great er than 7%. Fruct osami ne may be used as an alter nick test in these cases . REFER ENCE: ADA: Stand ards of Medic al Care in Diabe a[place] 2019, The Journ al of Clini paula and Appli ed Resea rch and Educa tion Volum e 43, Suppl ement 1 Not Available [facility] (Centralized Electronic Ordering - All Locations) Patient Can Go To The Location Of Their Choice, 07/08/2023 19:24:15 07/20/2007/20/2023 LETY TIN ferritin 51 NG/mL (14-28 3) Not Available [facility] (Centralized Electronic Ordering - All Locations) Patient Can Go To The Location Of Their Choice, 07/20/2023 16:12:53 07/20/2007/20/2023 TSH WITH REFLE X TO FT4 TSH 5.70 uIU/m L (0.4-4 .2) high Not Available [facility] (Centralized Electronic Ordering - All Locations) Patient Can Go To The Location Of Their Choice, 07/20/2023 16:12:54 07/20/2007/20/2023 FREE T4 free T4 1.57 NG/dL (0.70- 1.80) Not Available [facility] (Centralized Electronic Ordering - All Locations) Patient Can Go To The Location Of Their Choice, 07/20/2023 16:41:34 09/03/2009/03/2023 TSH WITH REFLE X TO FT4 results Dupli arcelia order cance lled via inter face Not Available [facility] (Centralized Electronic Ordering - All Locations) Patient Can Go To The Location Of Their Choice, 09/03/2023 09:49:02 09/03/2009/03/2023 FREE T3 free T3 3.6 pg/mL (2.3-5 .0) Not Available [facility] (Centralized Electronic Ordering - All Locations) Patient Can Go To The Location Of Their Choice, 09/03/2023 16:32:02 09/03/2009/03/2023 TSH WITH REFLE X TO FT4 TSH 2.05 uIU/m L (0.4-4 .2) Not Available [facility] (Centralized Electronic Ordering - All Locations) Patient Can Go To The Location Of Their Choice, [id number] 09/03/2023 16:32:04 09/03/2009/03/2023 ANTIT HYROG LOBUL IN AB antithyroglo bulin Ab 260.0 IU/mL (<115) high The resul ts are assay depen dent and canno t be inter craft eable with other assay s. The antib danielle assay is being perfo rmed using the elect irma milum inesc ence immun oassa y on the Irma Halle immun oassa y bijan zer. A corre latio n with clini paula prese ntati on is recom tushar d while inter preti ng the resul ts. Not Available [facility] (Centralized Electronic Ordering - All Locations) Patient Can Go To The Location Of Their Choice, 09/03/2023 17:17:44 09/03/2009/03/2023 ANTI THYRO ID PEROX IDASE AB anti thyroid peroxidase Ab 194.0 IU/mL (<34) high The resul ts are assay depen dent and canno t be inter craft eable with other assay s. The antib danielle assay is being perfo rmed using the elect irma milum inesc ence immun oassa y on the Irma Halle immun oassa y bijan zer. A corre latio n with clini paula prese ntati on is recom tushar d while inter preti ng the resul ts. Not Available [facility] (Centralized Electronic Ordering - All Locations) Patient Can Go To The Location Of Their Choice, [id number] 09/03/2023 17:17:45 Result Notes None recorded. 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 Procedures Surgical History Date Name Laterality Status Provider Name and Address Organization Details Recorded Time 03/21/2021 Date of Last Pap Smear completed Oanh Hinojosa NP [address] [address], [place], [address], [facility] - [facility] 07/05/2023 09:12:40 Imaging Results None recorded. Procedure Notes None recorded. Medical Equipment None Reported. Allergies No known drug allergies Medications Name Sig Start Date Stop Date Status Note LastModified by Organization Details LastModified Time Denta 5000 Plus 1.1 % cream USE PEA SIZE AT BEDTIME DO NOT EAT OR DRINK FOR HALF HOUR AFTER APPLYING active Not Available Not Available No t Available Tirosint 125 mcg capsule TAKE 1 CAPSULE BY MOUTH EVERY DAY 024 active Not Available Not Available Not Avai lable Tirosint 112 mcg capsule TAKE 1 CAPSULE BY MOUTH EVERY DAY active Not Available Not Available No t Available Flowflex COVID-19 Antigen Home Test kit FOR PERSONAL USE ONLY. NOT FOR EMPLOYMENT PURPOSES OR FOR RESALE active Not Available Not Available N ot Available Vitals None Recorded Social History Question Answer Notes LastModified by Organizat ion Details LastModified Time Tobacco Smoking Status Never Smoker Oanh Hinojosa NP [address] [address], [place], [address], [facility] 07/05/2023 09:12:13 What Is Your Level Of Caffeine Consumption? None Information not available 07/05/2023 What Type Of Diet Are You Following? REGULAR Information not available 07/05/2023 What Is Your Relationship Status? Single Information not available 07/05/2023 Sex: Unknown Functional Status Question Answer Note LastModified by Organizat ion Details LastModified Time What is your level of alcohol consumption? None Information not available 07/05/2023 Are you currently employed? Yes Information not available 07/05/2023 What is your exercise level? Occasional walking Information not available 07/05/2023 Mental Status None recorded. Family History Relationship Description Onset Age of this Age Resolved Age Notes LastModified by Organization Details LastModified Time Father Type 2 diabetes mellitus Not available 2022 09:09:49 Mother Malignant tumor of breast Not available 2022 09:09:58 Paternal Grandmother Malignant tumor of breast Not available 2022 09:10:13 Medical History No medical history recorded. Gynecological History Statement/Question Response Date of Last Pap Smear 03/21/2021 Obstetrics History GPAL:G 0 P 0 0 0 0 Past Encounters Encounter ID Performer Location Encounter Start Date Encounter Closed Date Diagnosis/Indication Diagnosis SNOMED-CT Code Diagnosis ICD10 Code Diagnosis IMO Codes Diagnosis Note [id number] Oanh Hinojosa NP Main Office [address] [facility] [place] [address] 07/05/2023 08:58:14 07/05/2023 09:19:35 Hypothyroidism 10582708 E03.9 Due for labs. Fatigue 92720265 R53.83 Will complete w/u as below. Screening for cardiovascular system disease 802432140 Z13.6 Agreeable to screen. Impaired f asting glycemia 346898929 R73.01 Agreeable to screen. Health Concerns Section Related Observation LastModified by Organization Detai ls LastModified Time None Recorded Concern Status LastModified by Organization Details LastModified Time None Recorded Advance Directives Directive None Recorded Payers Insurance Date Sequence Insurance Name Policy Number Policy Hilario Covered Member ID Hilario Member ID Guarantor Name 10/18/2023 1 [facility] (MEDICAID HMO) [id number] Adamaris Pierce [id number] Adamaris Pierce Notes Date Note Type Note Provider Name and Address Organization Details Recorded Time 07/05/2023 text/html This TH visit was arranged as a new patient visit- [place] PCP out of state.She has history of oumou thyroiditis- wants labs.Requests labs including iron studies/vitamin D for fatigue.States she is very fatigued over past 2.5 years.Reports one elevated reading of elevated BP while she was in ED. Oanh Hinojosa NP [address], [place], [address], [facility] - [facility] 07/05/2023 12:27:50 OBGyn Episode No OBEpisode recorded.
--- OUTSIDE RECORDS SUMMARY | 2025-08-19 14:53 | XMS_ITS | Clinical Summary ---
Author Organization [employer] Address [address] [facility] [address] [place] [address] Care Team Providers Care Information Manager Name Role Phone Samra Miranda MD Primary Care Provider [phone] Allergies No known active allergies Medications Tirosint 125 MCG capsule Take 125 mcg by mouth Once per day. 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 History of ovarian cyst 06/19/2025 Severe obesity (BMI 35.0-39.9) with comorbidity (CMS/HCC) 06/19/2025 Encounters Date Type Department Care Team Description 06/19/2025 12:00 PM EDT Office Visit [facility] OPTOMETRY [address] [place] [address] Sarah Gomez, OD Corneal neovascularization of both eyes (Primary Dx); Chronic tension-type headache, not intractable; Myopia of both eyes 06/19/2025 Travel 06/13/2025 [...] age to complete this topic Insurance [facility] Care Teams Information Manager Relationship Specialty Start Date End Date Samra Miranda MD [address] [place] [address] [place] [address] PCP - General 05/21/25
== END 2025-08-19 14:09 | disposition home or self-care (01) ==
LOC: HO.HSMS 13:22
PROVIDERS: PCP Internal Medicine; Visit Provider Physician Assistant Medical
DX: G47.00 Insomnia, unspecified (principal); G47.19 Other hypersomnia; M53.3 Sacrococcygeal disorders, not elsewhere classified
CPT/HCPCS: 99204

== ENCOUNTER → 2025-08-19 13:22 | Outpatient (BNVA) | payer OTHER, SELFPAY | PROVIDERS: PCP Internal Medicine; Visit Provider Physician Assistant Medical | DX: G47.00 Insomnia, unspecified (principal); G47.19 Other hypersomnia; M53.3 Sacrococcygeal disorders, not elsewhere classified; R53.83 Other fatigue | CPT/HCPCS: 99202 ==

== ENCOUNTER → 2025-09-10 14:19 | Outpatient (REF) | payer OTHER, SELFPAY ==
--- OUTSIDE RECORDS SUMMARY | 2025-09-10 19:22 | XMS_ITS | Clinical Summary ---
Author Organization [employer] Address [address] [facility] [address] [place] [address] Care Team Providers Care Rod Drawer Name Role Phone Samra Miranda MD Primary Care Provider [phone] Allergies No known active allergies Medications Tirosint 125 MCG capsule Take 125 mcg by mouth Once per day. 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 [place] [place] [address] [place] [address] Sarah Gomez, OD Corneal neovascularization of both [...] patient's age to complete this topic Insurance [facility] [employer] Care Teams Rod Drawer Relationship Specialty Start Date End Date Samra Miranda MD [address] [place] [address] [place] [address] PCP - General 05/21/25
== END ==
LOC: HO.SL 14:19
PROVIDERS: PCP Internal Medicine; Visit Provider Physician Assistant Medical
DX: G47.19 Other hypersomnia (principal); R06.83 Snoring; R40.0 Somnolence; G47.00 Insomnia, unspecified
CPT/HCPCS: 95806

== ENCOUNTER → 2025-09-10 14:26 | Outpatient (BNV) | payer OTHER, SELFPAY | PROVIDERS: PCP Internal Medicine; Visit Provider Psychiatry & Neurology Neurology | DX: R06.83 Snoring (principal) | CPT/HCPCS: 95806 ==

== ENCOUNTER 2025-09-19 08:36 | Outpatient (AMB) | payer OTHER, SELFPAY ==
--- NOTE | 2025-09-19 08:42 | A.OFFVIS_ITS ---
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 Patient was referred by her PCP 06/17/25. Patient had a MRI of the lumbar spine from [facility] radiology, 01/2025. At today's visit she states that back in November of this year she was having trouble getting out of bed, rolling out of bed. She noted that she was attending AT in [place] for her right hip due to the dull pain and she feels that one of the exercises created the back pain. [facility] and that she had a MRI of her hip in the summer. Patient noted that she feels that the lower back pain is now radiating down into her hip/pelvis. She added that she feels that the pain that was radiating down her right leg is no longer an issue, she feels that it is now manageable. Allergies levothyroxine Allergy (Mild, Verified 08/19/25 13:35) Abdominal Pain Medication List - Last Reconciled 09/19/25 by Valentina Flores MD Tirosint (levothyroxine) 125 mcg PO DAILY NS HPI Comments Details: She was also seen by Silvia GOINS who thought this was SI joint dysfunction. Feels like pain is from right SI joint. She was diagnosed in 2016 for SI joint dysfunction, had manipulation, resolved. Was doing better, but in 2021, was taking care of dad who was hospitalized, started more pain. On/off played sports her life, had tweaks . In November, was the worse type of her pain. It was not shooting down leg at that time. Radicular symptoms started past summer. No groin pain. Denies numbness on leg but feels heaviness, weight . Worse with lumbar extension and pelvic tilt. Worse also with leg extension. Ongoing PT in . COUNTS INCLUDE 234 BEDS AT THE [facility] Medical History Insomnia Thyroid nodule Thyromegaly Hypothyroidism Surgical History No pertinent past surgical history Family History Mother Fibromyalgia Breast cancer Heart disease Father Hypertension Type 2 diabetes mellitus Skin cancer High cholesterol Social History Alcohol intake: current Alcohol intake frequency: does not drink Patient Tobacco Use Status: Never used Tobacco Review of Systems Const All systems reviewed & are unremarkable except as noted in HPI and below Physical Exam Exam Exam: Constitutional: Patient appears to be in no acute distress, well nourished and well developed. Patient was appropriately conversant and oriented. Good historian. MSK: No specific abnormalities found on inspection of the spine and all extremities. No pain with palpation over the lumbar area. Mild right SI joint pain. Mild t enderness over GT. Lumbar ROM was full. Bilateral hip, knee and ankle ROM WNL. No ligamentous laxity or crepitance. No increased effusion. Straight-leg raising test negative. FABERE test positive right lower back pain. Gillet test is negative. Strength is 5/5 in all muscle groups tested. No increased tone noted. Neurological: Neurologic examination of the upper and lower extremities was nonfocal with intact sensation, muscle stretch reflexes and without focal motor deficits . Christina?s negative bilaterally. Babinski was down going bilaterally. Clonus was negative. Gait is non-antalgic without loss of balance. Results Reviewed Results Reviewed: I independently reviewed the results of the following: Hip MRI, did not show labral tear. Lumbar spine MRI reported disc protrusion L5-S1 with possible contact the right S1 nerve root. 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 She has done adequate conservative management especially for SI joint injection, including physical therapy and home exercises, without lasting relief. We discussed possibility of L5-S1 right-sided transforaminal epidural steroid injection, and she is eager to proceed. Most likely we will refer to Dr. Glass for the procedure. She is wondering about the retrolisthesis seen on an x-ray. It was not mentioned in the previous imaging that I have on file. She will bring other imaging done at external facilities. If there is a question of spondylolisthesis, we discussed that we can send her for lumbar x-rays with flexion and extension views to rule out instability. I was able to review the MRI hip imaging done at an external facility, do not see any signs of labral tear. Continue exercises for SI joint. Assessment and plan discussed with patient, and patient was agreeable. All questions were answered thoroughly. 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
--- OUTSIDE RECORDS SUMMARY | 2025-09-19 09:26 | XMS_ITS | Clinical Summary ---
Author Organization [employer] Address [address] [place] [address] Care Team Providers Care Charge Gang Weigher Name Role Phone Samra Miranda MD Primary Care Provider [phone] Allergies No known active allergies Medications Tirosint 125 MCG capsule Take 125 mcg by mouth Once per day. 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 History of ovarian cyst 06/19/2025 Severe obesity (BMI 35.0-39.9) with comorbidity (CMS/HCC) 06/19/2025 Encounters Date Type Department Care Team Description 06/19/2025 12:00 PM EDT Office Visit [facility] OPTOM[facility] [address] [place] [address] Sarah Gomez, OD Corneal neovascularization of both eyes (Primary Dx); Chronic tension-type headache, not intractable; Myopia of both eyes 06/19/2025 Travel from Last 3 Months Social History [...] patient's age to complete this topic [facility] ESSENTIAL [employer] PLAN [facility] CAREPLUS Care Teams Charge Gang Weigher Relationship Specialty Start Date End Date Samra Miranda MD [address] [place] [address] [place] [address] PCP - General 05/21/25
== END 2025-09-19 09:32 | disposition home or self-care (01) ==
LOC: HO.HOS 08:36
PROVIDERS: PCP Internal Medicine; Visit Provider Physical Medicine & Rehabilitation
DX: M51.16 Intervertebral disc disorders with radiculopathy, lumbar region (principal); M53.3 Sacrococcygeal disorders, not elsewhere classified
CPT/HCPCS: 99204

== ENCOUNTER → 2025-09-19 08:36 | Outpatient (BNVA) | payer OTHER, SELFPAY | PROVIDERS: PCP Internal Medicine; Visit Provider Physical Medicine & Rehabilitation | DX: M51.16 Intervertebral disc disorders with radiculopathy, lumbar region (principal); M53.3 Sacrococcygeal disorders, not elsewhere classified | CPT/HCPCS: 99202 ==

== ENCOUNTER 2025-10-16 08:21 | Outpatient (REF) | payer OTHER, SELFPAY ==
--- NOTE | 2025-10-16 08:24 | EMG_ITS ---
Chief complaint: Right-sided back/SI joint pain Reason for referral: Evaluate for radiculopathy Referred by: Silvia GOINS Procedure done: Right lower extremity NCS/EMG Precautions and/or limitations: None The limb temperature was monitored continuously and remained between 32-36 degrees C during the performance of the NCS. Nerve Conduction Studies Anti Sensory Summary Table ?Stim Site NR Onset (ms) Norm Onset (ms) Peak (ms) Norm Peak (ms) O-P Amp (?V) Norm O-P Amp Site1 Site2 Delta-0 (ms) Dist (cm) Will (m/s) Norm Will (m/s) Left Sural Anti Sensory (Lat Mall) Calf ? 3.0 3.7 <4.0 20.3 >5.0 Calf Lat Mall 3.0 14.0 47 Right Sural Anti Sensory (Lat Mall) Calf ? 2.6 3.3 <4.0 18.3 >5.0 Calf Lat Mall 2.6 14.0 54 Motor Summary Table ?Stim Site NR Onset (ms) Norm Onset (ms) O-P Amp (mV) Norm O-P Amp iAmp (mV) Amp (1st) (%) Site1 Site2 Delta-0 (ms) Dist (cm) Will (m/s) Norm Will (m/s) Right Peroneal Motor (Ext Dig Brev) Ankle ? 3.6 <4.0 8.8 >2.5 11.3 100.0 Ankle Ext Dig Brev 3.6 0.0 B Fib ? 9.5 7.9 10.2 89.8 B Fib Ankle 5.9 32.0 54 >40 Poplt ? 10.1 8.1 10.4 92.0 Poplt B Fib 0.6 5.0 83 >40 Right Tibial Motor (Abd Onofre Brev) Ankle ? 3.5 <5 13.6 >2.5 20.0 100.0 Ankle Abd Onofre Brev 3.5 0.0 Knee ? 10.6 6.1 10.1 44.9 Knee Ankle 7.1 33.0 46 >40 EMG ?Side Muscle Nerve Root Ins Act Fibs Psw Amp Dur Poly Recrt Int Pat Comment Right AbdHallucis MedPlantar S1-2 Nml Nml Nml Nml Nml 0 Nml Complete Right AntTibialis Dp Br Peron L4-5 Nml Nml Nml Nml Nml 0 Nml Complete Right PostTibialis Tibial L5, S1 Nml Nml Nml Nml Nml 0 Nml Complete Right MedGastroc Tibial S1-2 Nml Nml Nml Nml Nml 0 Nml Complete Right VastusMed Femoral L2-4 Nml Nml Nml Nml Nml 0 Nml Complete FINDINGS: All motor and sensory nerves tested showed normal latencies, amplitudes and conduction velocities. Concentric needle EMG was performed in selected muscles of the right lower extremity. Study did not reveal signs of electric abnormalities as shown in the table above. IMPRESSION: 1. This is a normal study. 2. There is no electrodiagnostic evidence for peroneal neuropathy, tibial neuropathy, lumbosacral plexopathy, lumbar radiculopathy, or peripheral neuropathy. CLINICAL COMMENT: I have also seen the patient in physiatry office, further plans for her care discussed today. Thank you for your kind referral. Valentina Flores MD, MOUNA Board Certified, [place] Board of Physical Medicine and Rehabilitation (ABPMR) Board Certified, [place] Board of Electrodiagnostic Medicine (ABEM) CODIN [address]10 x 1 extremity MTDD
--- OUTSIDE RECORDS SUMMARY | 2025-10-16 08:41 | XMS_ITS | Clinical Summary ---
Author Organization [employer] Address [address] [facility] [facility] [address] [place] [address] Care Team Providers Care Transfer Professor Name Role Phone Samra Miranda MD Primary Care Provider [phone] Allergies No known active allergies Medications Tirosint 125 MCG capsule Take 125 mcg by mouth Once per day. 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 History of ovarian cyst 06/19/2025 Severe obesity (BMI 35.0-39.9) with comorbidity (CMS/HCC) 06/19/2025 Social History Tobacco Use Types Packs/Day Years [...] 2021 HPV/Cotest 2021 COVID-19 Vaccine (1 - 2024-2 6 season) 2025 Influenza Vaccine (#1) 2025 Tobacco [...] patient's age to complete this topic Insurance [facility] PLAN [facility] ESSENTIAL M[facility] PLAN [facility] CAREPLUS Care Teams Transfer Professor Relationship Specialty Start Date End Date Samra Miranda MD [address] [place] [address] [place] [id number] PCP - General 05/21/25
== END 2025-10-16 08:22 | disposition home or self-care (01) ==
LOC: HO.NEURO 08:21
PROVIDERS: PCP Internal Medicine; Visit Provider Physician Assistant
DX: M54.16 Radiculopathy, lumbar region (principal); M53.3 Sacrococcygeal disorders, not elsewhere classified
CPT/HCPCS: 95886; 95908

== ENCOUNTER → 2025-10-16 08:24 | Outpatient (BNV) | payer OTHER, SELFPAY | PROVIDERS: PCP Internal Medicine; Visit Provider Physical Medicine & Rehabilitation | DX: M53.3 Sacrococcygeal disorders, not elsewhere classified (principal) | CPT/HCPCS: 95886; 95908 ==

== ENCOUNTER 2025-10-25 10:32 | Outpatient (AMB) | payer OTHER, SELFPAY ==
[2025-10-25 10:37] VITALS: BP 112/72; PULSE 62; O2SAT 100
--- NOTE | 2025-10-25 10:37 | A.OFFVIS_ITS ---
Vital Signs 10/25/25 10:37 Height 5 ft 7 in BP 112/72 Blood Pressure Location Lt brachial Position Sitting Pulse 62 Pulse Source Pulse Oximeter Pulse Oximetry (%) 100 Oxygen Delivery Method Room Air Intake Visit Reasons: f/u appt Party Plan Dealer Required: No Accompanied by: Self / Same As Patient Allergies levothyroxine Allergy (Mild, Verified 08/19/25 13:35) Abdominal Pain HPI Comments Details: 35 year old female with chronic fatigue, presents for a review of her HST. HST is c/w no evidence of kimmy, AHI is <1 oxygen nadirs to 92%, reviewed with pt. today. 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 She goes to bed at 11pm and falls asleep at 2am, she tried melatonin and it was ineffective. She thought her symptoms were due to usp covid and Hashimotos though her labs are normal. Her dad had a h/o Liver cancer due to cirrhosis, and she is concerned since her ALT is 38. She is being followed by Endocrine for a Tirads level 4 thyroid nodule. She snores at night, gasps for air and makes a rattling sound which wakes her up from sleep. She has morning headaches 3-4 / per week and they resolve at lunch time or after meals. She has l. sided Cervicalgia which leads to migraines that last 3 days per week, with a 7-8/10 radiating pain into the trapezius and pressure in her head. She has bilateral ringing in ears, photophobia, phonophobia, nausea, dizziness, and vertigo. Denies vertigo, vomiting, balance and gait instability. Her memory is poor she loses focus, can not concentrate, will forget tasks, and needs to write everything down. She is uncertain about her diagnosis and is working through neuro- divergent therapies to include talk therapy. She denies RLS symptoms, she has r. sided sciatica, and is working with PT 2x a week for the last 3 weeks for impingement of the Piriformis. She denies paresthesias of the feet and notices a new intermittent tremor of the l. hand, she denies weakness or difficulty with fine motor activities. COUNT [facility]CLUDES [facility] Medical History Insomnia Thyroid nodule Thyromegaly Hypothyroidism Surgical History No pertinent past surgical history Family History Mother Fibromyalgia Breast cancer Heart disease Father Hypertension Type 2 diabetes mellitus Skin cancer High cholesterol Social History Alcohol intake: current Alcohol intake frequency: does not drink Patient Tobacco Use Status: Never used Tobacco Physical Exam Vital Signs: Last Vital Signs Pulse 62 10/25/25 10:37 BP 112/72 10/25/25 10:37 Pulse Ox 100 10/25/25 10:37 Oxygen Delivery Method Room Air 10/25/25 10:37 Const General: cooperative, comfortable and no acute distress Nutritional Appearance: average body habitus Orientation/consciousness: patient oriented x3 HEENT Face and sinus: Yes face symmetric Teeth and gingiva: other (M[place]pti score is 3) Eyes Pupils: Equal, round and reactive pupils present Neck Neck: Yes full ROM Resp Effort & Inspection: normal respiratory effort and able to speak in complete [facility] tences Neuro General: patient oriented x3 and moves all extremities Cranial nerves: Yes Equal, round and reactive pupils present, Yes Normal accommodation reflex present, Yes Midline tongue present, Yes Ability to bilaterally rotate head present and Yes Ability to bilaterally elevate shoulders present Cognition (Neuro): normal cognition Gait exam (Neuro): Normal gait present Motor exam (neuro): 5/5 motor strength present throughout and Normal motor mu scle tone present throughout Deep tendon reflexes (DTR's): Right triceps reflex intensity grade: 2+, Left triceps reflex intensity grade: 2+, Rt Biceps (C5, C6): 2+, Left biceps reflex intensity grade: 2+, Right brachioradialis reflex intensity grade: 2+, Left brachioradialis reflex intensity grade: 2+, Right patellar reflex intensity grade: 2+ and Left patellar reflex intensity grade: 2+ Psych Appearance: grossly normal Mental Status: mental status grossly normal Affect: normal affect Thought process: Normal thought process present Thought content: Normal thought content present Results Reviewed Results Reviewed: HST is c/w no evidence of kimmy, AHI is <1 oxygen nadirs to 92%, reviewed with pt. today. Labs reviewed with pt. Assessment & Plan Assessment & Plan (1) Excessive daytime sleepiness: Code(s): G47.19 - Other hypersomnia Category: Medical (2) Insomnia: Code(s): G47.00 - Insomnia, unspecified Category: Medical Qualifiers: Insomnia type: unspecified Qualified Code(s): G47.00 - Insomnia, unspecified (3) SI (sacroiliac) joint dysfunction: Code(s): M53.3 - Sacrococcygeal disorders, not elsewhere classified Category: Medical (4) Piriformis muscle pain: Code(s): M79.18 - Myalgia, other site Category: Medical (5) Cervicalgia of azatwrtf-ficrwtv-[id number] region: Comment: magnesium + B2 Code(s): M54.2 - Cervicalgia Category: Medical Plan Excessive daytime fatigue HST reviewed with pt. will send her for an in lab psg. Piriformis muscle pain, continue with PT and future consideration for corticosteroid injections in r. SI joint as needed. Migraines / Cevicalgia sumatriptan 25mg po prn headaches, keep notes for triggers, severity, and frequency of migraines in diary or khoi migraine romina along with time of month, day. Tremor of the l. upper extremity will monitor. RLS symptoms r sided will monitor, she is doing PT. Start magnesium 200mg po qpm Labs to reviewed with pt today, continue daily b12 1000mcg, and vit d-3 1000units daily. f/u in 3 months Orders: Orders RT PSG in-lab sleep study 10/25/25 G47.19 - Other hypersomnia, R06.83 - Snoring Medications: New sumatriptan succinate take 1 tab at onset of headache; if no relief may repeat 1 tab after at least 2 hrs; max = 4 tabs/24 hr PO 14 tabs 0RF riboflavin (vitamin B2) 100 mg PO DAILY 90 tabs 3RF 3 months magnesium 200 mg PO DAILY 90 tabs 0RF Patient Instructions: Sleep Hygiene provided: set a scheduled bedtime and wake time to help regulate the circadian rhythm and balance the release of pituitary hormones. Sleep in a dark room, temperatures below 68 degrees, and no devices n bed. Limit caffeinated products 6 hours prior to bed, and limit fluids 2-4 hours prior to bed. Gentle night yoga, diffusing essential oils, and playing soft music can be relaxing. Coding Level of Care Code Est Pt Level 4 (74543) Diagnoses Excessive daytime sleepiness G47.19 Insomnia, unspecified type G47.00 Insomnia type: unspecified SI (sacroiliac) joint dysfunction M53.3 Piriformis muscle pain M79.18 Cervicalgia of tpxwovnu-tkkywbc-ddznn region M54.2
== END 2025-10-25 11:47 | disposition home or self-care (01) ==
LOC: HO.HSMS 10:33
PROVIDERS: PCP Internal Medicine; Visit Provider Physician Assistant Medical
DX: G47.19 Other hypersomnia (principal); G47.00 Insomnia, unspecified; M53.3 Sacrococcygeal disorders, not elsewhere classified; M79.18 Myalgia, other site; M54.2 Cervicalgia
CPT/HCPCS: 99214

== ENCOUNTER → 2025-10-25 10:32 | Outpatient (BNVA) | payer OTHER, SELFPAY | PROVIDERS: PCP Internal Medicine; Visit Provider Physician Assistant Medical | DX: G47.19 Other hypersomnia (principal); G47.00 Insomnia, unspecified; M79.18 Myalgia, other site; M54.2 Cervicalgia; M53.3 Sacrococcygeal disorders, not elsewhere classified | CPT/HCPCS: 99212 ==